=== PATIENT | female | born 1975 | race Caucasian/White ===

== ENCOUNTER → 2017-10-07 | Outpatient (CLI) | payer OTHER | END | disposition home or self-care (01) | LOC: C.LAB1850 12:24 | PROVIDERS: ATTEND Obstetrics & Gynecology | DX: R39.9 Unspecified symptoms and signs involving the genitourinary system (principal) ==

== ENCOUNTER → 2017-10-20 | Outpatient (CLI) | payer OTHER ==
[2017-10-20 09:34] LABS: HEMOGLOBIN 13.7 g/dL (12.0-16.0); MEAN CELL VOLUME 90.5 fL (80-100); MEAN CORPUSCULAR HGB CONC 34.3 g/dl (32-36); MEAN PLATELET VOLUME 9.7 fL (7.4-10.4); PLATELET COUNT 245 K/uL (130-400); RED CELL DISTRIBUTION WIDTH CV 13.3 % (11.5-14.5); RED CELL DISTRIBUTION WIDTH SD 44.3 fL (36.4-46.3); WHITE BLOOD COUNT 4.41 K/uL (4.8-10.8)
[2017-10-20 09:46] LABS: ALBUMIN 3.9 gm/dl (3.4-5.0); ALT/SGPT 22 U/L (12-78); AST/SGOT 14 U/L (15-37); BLOOD UREA NITROGEN 11 mg/dl (7-18); CALCIUM 8.8 mg/dl (8.5-10.1); CARBON DIOXIDE 27 mmol/L (21-32); CREATININE 0.75 mg/dl (0.60-1.20); GLUCOSE 90 mg/dl (70-99); POTASSIUM 3.8 mmol/L (3.5-5.1); SODIUM 136 mmol/L (136-145)
[2017-10-20 09:52] LABS: ALKALINE PHOSPHATASE 60 U/L (45-117); CHOLESTEROL 177 mg/dl (0-200); LDL CHOLESTEROL CALCULATED 107 mg/dl; TOTAL PROTEIN 7.5 gm/dl (6.4-8.2)
== END | disposition home or self-care (01) ==
LOC: C.LAB1850 08:39
PROVIDERS: ATTEND Physician Assistant
DX: Z13.220 Encounter for screening for lipoid disorders (principal); Z13.228 Encounter for screening for other metabolic disorders

== ENCOUNTER → 2017-11-07 | Outpatient (CLI) | payer OTHER ==
--- NOTE | 2017-11-07 11:27 | DIAGNOSTIC IMAGING REPORT ---
(RENAL)RETROPERITON COMP CLINICAL HISTORY: 42 years-old Female presenting with R39.9 Urinary symptom or signBurning with urination - potential. TECHNIQUE: Real-time grayscale and limited color Doppler ultrasound imaging of the kidneys and bladder was performed. COMPARISON: None. FINDINGS: Right kidney: Normal echogenicity of renal parenchyma. Right kidney measures 12.3 cm. No hydronephrosis. No convincing evidence of calculus or mass. Normal perfusion. Left kidney: Normal echogenicity of renal parenchyma. Left kidney measures 11.8 cm. No hydronephrosis. Subcentimeter simple appearing cyst at the interpolar region noted. Normal perfusion. Bladder: No bladder wall thickening. Bilateral ureteral jets visualized. Other: Round heterogeneously hypoechoic mass in the region of the uterine fundus measuring 10.3 x 9.4 x 8.4 cm. No associated posterior shadowing. IMPRESSION: 1. Essentially normal renal ultrasound. No obstruction. 2. Large uterine fundal fibroid suspected. Electronically signed by: Luís Alonso M.D. 11/07/2017 11:25 AM Dictated Date/Time: 11/07/2017 11:24 AM
== END | disposition home or self-care (01) ==
LOC: C.ULTRBC 10:16
PROVIDERS: ATTEND Physician Assistant
DX: R39.9 Unspecified symptoms and signs involving the genitourinary system (principal)

== ENCOUNTER → 2017-12-19 | Outpatient (CLI) | payer OTHER | END | disposition home or self-care (01) | LOC: C.PATHSPEC 16:56 | PROVIDERS: ATTEND Urology | DX: D25.9 Leiomyoma of uterus, unspecified (principal); N30.00 Acute cystitis without hematuria; R31.29 Other microscopic hematuria; R30.0 Dysuria ==